=== PATIENT | male | born 1970 | race Caucasian/White ===

== ENCOUNTER 2017-11-09 09:16 | Emergency (ER) | payer OTHER | END 2017-11-09 11:04 | disposition home or self-care (01) | LOC: FTE 09:16 | DX: M10.9 Gout, unspecified (principal); F17.210 Nicotine dependence, cigarettes, uncomplicated | CPT/HCPCS: 99283; Z7502 ==

== ENCOUNTER 2017-12-18 01:50 | Emergency (ER) | payer OTHER ==
[2017-12-18] MEDS: predniSONE 20 MG TAB PO (04:43)
[2017-12-18] MEDS: HYDROCODONE/APAP (10/325) TAB PO (04:43)
== END 2017-12-18 05:27 | disposition home or self-care (01) ==
LOC: FTE 05:27
DX: M10.9 Gout, unspecified (principal); E11.9 Type 2 diabetes mellitus without complications; I10 Essential (primary) hypertension
CPT/HCPCS: 99284; J7512